=== PATIENT | female | born 1970 | race Caucasian/White ===

== ENCOUNTER 2020-07-28 03:17 | Emergency (ER) | payer SELFPAY ==
[~2020-07-28] VITALS: Ht 157.5 cm; Wt 83.9 kg
[2020-07-28 03:24] VITALS: Ht 157.5 cm; Wt 83.9 kg
[2020-07-28] MEDS ORDERED: AMLODIPINE BESY10 M2 PO (04:40)
[2020-07-28] MEDS ORDERED: GRALISE600 MG PO (04:40)
[2020-07-28] MEDS ORDERED: BACLOFEN20 MG PO (04:47)
[2020-07-28 05:02] VITALS: BP 131/83
== END 2020-07-28 05:03 | disposition home or self-care (01) ==
LOC: ED 03:17
DX: Z76.0 Encounter for issue of repeat prescription (principal)